=== PATIENT | female | born 1965 | race Caucasian/White ===

== ENCOUNTER 2025-01-17 11:40 | Emergency (ER) | payer OTHER ==
[2025-01-17] MEDS ORDERED: IPRATROPIUM BROM 0.5MG/2.5ML ONE (12:02)
[2025-01-17] MEDS ORDERED: METHYLPREDNISOLONE 125 MG INJ ONE (12:02)
[2025-01-17] MEDS ORDERED: FAMOTIDINE 20 MG/2 ML VIAL IV ONE (12:03)
[2025-01-17] MEDS ORDERED: NA CHLORIDE 0.9% 500 ML ONE (12:03)
[2025-01-17] MEDS ORDERED: NA CHLORIDE 0.9% 100 ML ONE (12:03)
[2025-01-17] MEDS ORDERED: LEVALBUTEROL 1.25 MG/3 ML NEB ONE (12:03)
[2025-01-17] MEDS ORDERED: Meropenem 1000 MG/VIAL IV ONE (12:03)
[2025-01-17 12:20] LABS: Absolute Basophils 0.1 K/uL (0-0.5); Absolute Eosinophils 0.2 K/uL (0-0.5); Absolute Lymphocytes (CBC) 2.5 K/uL (0.7-4.9); Absolute Monocytes 0.7 K/uL (0.1-1.3); Basophils % 0.9 % (0-1.3); Eosinophils % 1.9 % (0-4.4); Hematocrit 28.8 % (36.0-45.0); Hemoglobin 9.8 g/dL (12.0-15.0); MCV 96.9 fL (80-100); MPV 8.8 fL (7.6-11.3); Monocytes % 5.5 % (3.3-12.3); Neutrophils % 71.7 % (41.7-73.7); Nucleated Red Blood Cells % 0.2 % (0-0); Platelets 375 thou/uL (152-406); RBC Red Blood Cell Count 2.97 M/uL (3.86-4.86); Red Cell Distribution Width 13.9 % (12.1-15.2)
[2025-01-17 12:21] LABS: Influenza A Ag Negative; Influenza B Ag Negative; SARS-CoV-2 Antigen Rapid Res Negative (Negative)
[2025-01-17 12:26] LABS: PT Prothrombin Time 12.6 SECONDS (10-13.0); Protime INR 1.11
--- NOTE | 2025-01-17 12:30 | RAD REPORT ---
EXAMINATION: ONE VIEW CHEST XR CLINICAL INDICATION: Cough;COPD TECHNIQUE: Frontal chest projection is submitted. Examination is limited by patient positioning and t echnique. COMPARISON: No prior exam. FINDINGS: Moderate to severe bilateral opacities are present, greater on the right, likely representing pulmona ry edema or pneumonia. The heart is mildly enlarged in size. No displaced fractures identified. Postsurgical hardware is present cervical spine.
[2025-01-17 12:48] LABS: Albumin 2.6 g/dL (3.4-5.0); Albumin/Globulin Ratio 0.6 (1.1-1.8); Bilirubin Direct 0.3 mg/dL (0-0.2); Bilirubin Indirect, Calculated 0.3 mg/dL (0.2-0.8); Bilirubin Total 0.6 mg/dL (0.2-1.0); Globulin 4.7 g/dL (2.3-3.5); Protein, Total 7.3 g/dL (6.4-8.2); Troponin High Sensitivity 52.6 pg/mL (<58.9)
--- NOTE | 2025-01-17 12:52 | EDPHYS ---
Physician Documentation [facility] Name: Tracee Barney Age: 59 yrs Sex: Female : 1965 Arrival Date: 01/17/2025 Time: 11:40 Bed 5 Private MD: ED Physician Roberto Velázquez HPI: 01/17 12:39 This 59 yrs old Female presents to ER via Wheelchair with complaints of Low stacie Oxygen Levels, General Weakness, Chest Pain. 12:39 The patient or guardian reports chest pain that is located primarily in the substernal stacie area, anterior chest wall, bilaterally. Onset: 2 day(s) ago. The pain does not radiate. Associated signs and symptoms: Pertinent positives: shortness of breath. The chest pain is described as a heaviness. Duration: The patient or guardian reports multiple episodes, worse now. Modifying factors: The symptoms are alleviated by application of supplemental oxygen, remaining still, rest, the symptoms are aggravated by breathing, cough, deep breath, movement, walking. Severity of pain: At its worst the pain was mild in the emergency department the pain. The patient has experienced similar episodes in the past, multiple times. Historical: - Allergies: 11:56 Morphine; hb - PMHx: 11:56 Hypertensive disorder; Chronic obstructive lung disease; hb - PSHx: 11:56 SI joint; hb - Immunization history:: Adult Immunizations up to date. - Infectious Disease History:: Denies. - Social history:: Smoking status: Reported history of juuling and/or vaping. Patient/guardian denies using tobacco. ROS: 12:42 Constitutional: Negative for fever, chills, and weight loss, Eyes: Negative for injury, stacie pain, redness, and discharge, ENT: Negative for injury, pain, and discharge, Neck: Negative for injury, pain, and swelling, Abdomen/GI: Negative for abdominal pain, nausea, vomiting, diarrhea, and constipation, Back: Negative for injury and pain, : Negative for injury, bleeding, discharge, and swelling, MS/Extremity: Negative for injury and deformity, Skin: Negative for injury, rash, and discoloration, Neuro: Negative for headache, weakness, numbness, tingling, and seizure, Psych: Negative for depression, anxiety, suicide ideation, homicidal ideation, and hallucinations, Allergy/Immunology: Negative for hives, rash, and allergies, Endocrine: Negative for neck swelling, polydipsia, polyuria, polyphagia, and marked weight changes, Hematologic/Lymphatic: Negative for swollen nodes, abnormal bleeding, and unusual bruising, 12:42 Cardiovascular: Positive for chest pain, of the chest, 12:42 Respiratory: Positive for cough, shortness of breath, wheezing, expiratory, 12:42 Abdomen/GI: Negative for abdominal pain, 12:42 MS/extremity: Negative for acute changes, Exam: 12:44 Constitutional: This is a well developed, well nourished patient who is awake, alert, stacie and in no acute distress. Head/Face: Normocephalic, atraumatic. Eyes: Pupils equal round and reactive to light, extra-ocular motions intact. Lids and lashes normal. Conjunctiva and sclera are non-icteric and not injected. Cornea within normal limits. Periorbital areas with no swelling, redness, or edema. ENT: Nares patent. No nasal discharge, no septal abnormalities noted. Tympanic membranes are normal and external auditory canals are clear. Oropharynx with no redness, swelling, or masses, exudates, or evidence of obstruction, uvula midline. Mucous membranes moist. Neck: Trachea midline, no thyromegaly or masses palpated, and no cervical lymphadenopathy. Supple, full range of motion without nuchal rigidity, or vertebral point tenderness. No Meningismus. Chest/axilla: Normal chest wall appearance and motion. Nontender with no deformity. No lesions are appreciated. Abdomen/GI: Soft, non-tender, with normal bowel sounds. No distension or tympany. No guarding or rebound. No evidence of tenderness throughout. Back: No spinal tenderness. No costovertebral tenderness. Full range of motion. Female : Normal external genitalia. Skin: Warm, dry with normal turgor. Normal color with no rashes, no lesions, and no evidence of cellulitis. MS/ Extremity: Pulses equal, no cyanosis. Neurovascular intact. Full, normal range of motion., bilateral aka Neuro: Awake and alert, GCS 15, oriented to person, place, time, and situation. Cranial nerves II-XII grossly intact. Motor strength 5/5 in all extremities. Sensory grossly intact. Cerebellar exam normal. Normal gait. Psych: Awake, alert, with orientation to person, place and time. Behavior, mood, and affect are within normal limits. 12:44 Cardiovascular: Rate: normal, Rhythm: regular, Pulses: Pulses are 4+ in bilateral radial, brachial, femoral, popliteal, posterior tibial and and dorsalis pedis arteries.. Heart sounds: normal, JVD: is noted bilaterally, to the angle of the jaw, 12:44 ECG was reviewed by the Attending Physician. Vital Signs: 11:54 BP 110 / 76; Pulse 84; Resp 24; Temp 97.9(O); Pulse Ox 88% on R/A; Weight 52.16 kg; hb Height 5 ft. 3 in. ; Pain 8/10; 12:20 BP 96 / 65; Pulse 82; Resp 28; Pulse Ox 97% on Nebulizer Mask; ph 13:38 BP 108 / 73; Pulse 86; Resp 24; Pulse Ox 98% on BiPAP; ph 14:25 BP 112 / 91; Pulse 82; Resp 24; Pulse Ox 98% on BiPAP; FiO2 60 %; ph 15:00 BP 110 / 87; Pulse 86; Resp 24; Temp 97.5; Pulse Ox 99% on BiPAP; ph 11:54 Body Mass Index 20.37 (52.16 kg, 160.02 cm) hb 11:54 Pain Scale: Adult hb MDM: 11:48 Medical Screening Exam initiated stacie 12:47 Antibiotic administration: merrem. Differential diagnosis: Anemia Anxiety Reaction stacie asthma, Bronchitis CHF exacerbation, Chronic Obstructive Pulmonary Disease abnormal EKG, acute myocardial infarction, acute pericarditis, anxiety, chest wall pain, congestive heart failure costochondritis, myocarditis, pancreatitis, peptic ulcer disease, pericarditis, pleurisy, pneumonia, pneumothorax, pulmonary embolus, thoracic aortic disection, unstable angina, Myocardial Infarction pneumonia, Pneumothorax pulmonary edema, Pulmonary Embolism reactive airway disease, Sepsis Unstable Angina. HEART Score: History: Moderately Suspicious (1), ECG: Non specific repolarization disturbance / LBTB / PM (1), Age: > 45 and < 65 years (1), Risk Factors: > or = 3 Risk factors for atherosclerotic disease (2), [Hypercholesterolemia] [Hypertension] [Active Smoker] [+ Family HX] Troponin: < or = 1 x Normal Limit (0). The patient was not given aspirin in the Emergency Department. Patient reports taking aspirin within the past 24 hours. JOHNNY Risk Score: 1 - Three or more CAD risk factors, 1- Known CAD, 1 - ASA use in past 7 days, TOTAL SCORE = 3. Immunization status: Influenza vaccine: within last 5 years. Data reviewed: vital signs, nurses notes, lab test result(s), EKG, radiologic studies, plain films. Consideration of Admission/Observation Escalation of care including admission/observation considered. I considered the following discharge prescriptions or medication management in the emergency department Medications were administered in the Emergency Department. See MAR. Independent interpretation of the following test(s) in the Emergency Department EKG: See my EKG interpretation above. 14:31 Test considered but Not performed: Ultrasound no 2 d echo. Historians other than the [facility] Patient: Family Member: and daughter. Care significantly affected by the following chronic conditions: Congestive Heart Failure, Chronic Obstructive Pulmonary Disease. Counseling: I had a detailed discussion with the patient and/or guardian regarding the historical points, exam findings, and any diagnostic results supporting the discharge/admit diagnosis, lab results, radiology results, the need to transfer to another facility, for higher level of care, [facility] does not immediately have the required specialist. 14:33 Post IV fluid administration reassessment for Sepsis: Client not prescribed the 30 stacie mL/kg IVF due to: Lungs: Other: chf. 01/17 11:50 Order name: Basic Metabolic Panel; Complete Time: 13: [facility] 01/17 11:50 Order name: CBC with Diff; Complete Time: 13:26 [facility] 01/17 11:50 Order name: LFT's; Complete Time: 13:26 [facility] 01/17 11:50 Order name: Magnesium; Complete Time: 13:26 [facility] 01/17 11:50 Order name: NT PRO-BNP; Complete Time: 13:26 [facility] 01/17 11:50 Order name: PT-INR; Complete Time: 12:38 [facility] 01/17 11:50 Order name: Troponin HS; Complete Time: 13:26 [facility] 01/17 11:50 Order name: Blood Culture Adult (2) [facility] 01/17 11:50 Order name: Lactate w/ 2H reflex if indic.; Complete Time: 13:26 [facility] 01/17 11:50 Order name: Lipase; Complete Time: 13:26 [facility] 01/17 11:50 Order name: COVID-19 Ag + Flu A+B Ag; Complete Time: 12:38 [facility] 01/17 11:50 Order name: UA Rfx Puma Cult if indicated; Complete Time: 14:30 [facility] 01/17 12:20 Order name: ABG; Complete Time: 13:26 [facility] 01/17 12:45 Order name: Ghost Lactate-NO COLLECT Timer EDMS 01/17 11:50 Order name: XRAY Chest (1 view); Complete Time: 12:38 [facility] 01/17 11:50 Order name: EKG; Complete Time: 11:50 [facility] 01/17 11:50 Order name: Cardiac monitoring; Complete Time: 12:18 [facility] 01/17 11:50 Order name: EKG - Nurse/Tech; Complete Time: 12:18 [facility] 01/17 11:50 Order name: IV Saline Lock; Complete Time: 12:13 [facility] 01/17 11:50 Order name: Labs collected and sent; Complete Time: 12:13 [facility] 01/17 11:50 Order name: O2 Per Protocol; Complete Time: 11:56 [facility] 01/17 11:50 Order name: O2 Sat Monitoring; Complete Time: 11:56 [facility] 01/17 12:19 Order name: Villarreal; Complete Time: 13:38 [facility] 01/17 14:35 Order name: IV Saline Lock - Large Bore; Complete Time: 14:36 [facility] EC:44 Rate is 80 beats/min. Rhythm is regular. QRS Gaines is Normal. MT interval is normal. QRS stacie interval is normal. QT interval is normal. No Q waves. T waves are Normal. ST Segment is depressed in leads II, III, aVF, V5, V6. Clinical impression: NSR w/ Non-specific ST/T Changes and No evidence of ischemia. Interpreted by me. Reviewed by me. Administered Medications: 12:19 Discontinued: ns 0.9% 500 ml IV at bolus once; to be given as a bolus over 30 minutes stacie 12:17 Drug: MethylPrednisoLONE IVP 125 mg IVP once Route: IVP; Site: right antecubital; ph 14:26 Follow up: Response: No adverse reaction ph 12:18 Drug: Levalbuterol Inhalation 3.75 mg Inhalation once Route: Inhalation; ph 14:26 Follow up: Response: No adverse reaction ph 12:18 Drug: Ipratropium Inhalation Aerosol 0.5 mg Inhalation once Route: Inhalation; ph 14:26 Follow up: Response: No adverse reaction ph 12:18 Drug: Famotidine IVP 20 mg IVP once; dilute with 10 mL 0.9% NaCl; give over 2 minutes ph Route: IVP; Site: right antecubital; 14:26 Follow up: Response: No adverse reaction ph 12:18 Drug: NS 0.9% IV 500 ml IV at bolus once; to be given as a bolus over 30 minutes Route: ph IV; Rate: bolus; Site: right antecubital; 12:28 Follow up: Response: No adverse reaction; IV Status: Order to discontinue infusion ph 12:19 Not Given (Duplicate Order): ns 0.9% 1000 ml IV at 100 ml/hr once; to be given as a stacie bolus over 60 minutes 12:28 Drug: Meropenem IV 1 grams IV at per protocol once; (mix in NS 100 mL) Route: IV; Rate: ph per protocol; Site: right antecubital; 13:00 Follow up: Response: No adverse reaction; IV Status: Completed infusion ph 13:38 Drug: Furosemide IVP 40 mg IVP once; give over 2 minutes Route: IVP; Site: right ph antecubital; 14:27 Follow up: Response: No adverse reaction ph 15:12 Drug: Ativan IVP 0.5 mg IVP once Route: IVP; Site: right antecubital; ph 15:19 Follow up: Response: No adverse reaction ph Disposition: 14:31 Critical Care:. stacie Disposition Summary: 01/17/25 12:51 Transfer Ordered Notes: Transfer Location: [facility] stacie Reason: Higher level of care stacie Condition: Serious stacie Problem: an ongoing problem stacie Symptoms: have worsened stacie Accepting Physician: to icu/ccu(01/17/25 15:18) hb Diagnosis - Nonrheumatic mitral valve disorder, unspecified - insufficency stacie - Chronic combined systolic (congestive) and diastolic (congestive) heart failure stacie - COPD/ Chronic obstructive pulmonary disease with (acute) exacerbation stacie - Hypoxemia stacie - Hypotension, unspecified stacie - Elevated white blood cell count stacie - Chronic kidney disease, unspecified stacie - Severe sepsis without septic shock stacie Forms: - Medication Reconciliation Form stacie - SBAR form stacie Critical care time excluding procedures: 14:31 Critical care time: Bedside Care: 30 minutes, Consultation: 20 minutes, Family stacie Intervention: 15 minutes. Total time: 65 minutes Signatures: Dispatcher [employer] EDMS Roberto Velázquez MD MD cha Hall, Patricia, RN RN ph Carmen Rhoades, DIANA RN hb Corrections: (The following items were deleted from the chart) 11:50 11:50 BASIC METABOLIC PANEL+C.LAB.BRZ ordered. EDMS EDMS 11:50 11:50 CBC+H.LAB.BRZ ordered. EDMS EDMS 11:50 11:50 HEPATIC FUNCTION+C.LAB.BRZ ordered. EDMS EDMS 11:50 11:50 MAGNESIUM+C.LAB.BRZ ordered. EDMS EDMS 11:50 11:50 PROBNP+C.LAB.BRZ ordered. EDMS EDMS 11:50 11:50 PROTIME (+INR)+COAG.LAB.BRZ ordered. EDMS EDMS 11:50 11:50 Troponin High Sensitivity+C.LAB.BRZ ordered. EDMS EDMS 11:50 11:50 BLOOD CULTURE*+BA.LAB.BRZ ordered. EDMS EDMS 11:50 11:50 LACTATE+C.LAB.BRZ ordered. EDMS EDMS 11:50 11:50 LIPASE+C.LAB.BRZ ordered. EDMS EDMS 11:50 11:50 COVID-19 Ag + Flu A+B Ag+I.LAB.BRZ ordered. EDMS EDMS 12:20 12:20 BiPap ([employer] Only)+RC.RAD.BRZ ordered. EDMS EDMS 13:30 12:51 to icu/ccu stacie stacie 14:31 13:30 to icu/ccu stacie stacie 15:18 14:31 to icu/ccu stacie hb
--- NOTE | 2025-01-17 12:52 | ER ---
Nurse's Notes [facility] Name: Tracee Barney Age: 59 yrs Sex: Female : 1965 Arrival Date: 01/17/2025 Time: 11:40 Bed 5 Private MD: Diagnosis: Nonrheumatic mitral valve disorder, unspecified-insufficency;Chronic combined systolic (congestive) and diastolic (congestive) heart failure;COPD/ Chronic obstructive pulmonary disease with (acute) exacerbation;Hypoxemia;Hypotension, unspecified;Elevated white blood cell count;Chronic kidney disease, unspecified;Severe sepsis without septic shock Presentation: 01/17 11:54 Chief complaint: Patient states: Low O2, weak, CP, low BP since last night. Coronavirus hb screen: Client denies travel out of the [place] in the last 14 days. difficulty breathing, shortness of breath, Client presents with at least one sign or symptom that may indicate coronavirus-19. Standard/surgical mask placed on the client. Ebola Screen: Patient denies travel to an Ebola-affected area in the 21 days before illness onset. Initial Sepsis Screen: Does the patient meet any 2 criteria? No. Patient's initial sepsis screen is negative. Does the patient have a suspected source of infection? No. Patient's initial sepsis screen is negative. Risk Assessment: Do you want to hurt yourself or someone else? Patient reports no desire to harm self or others. Onset of symptoms was January 16, 2025. 11:54 Method Of Arrival: Wheelchair hb 11:54 Acuity: MICHEAL 2 hb Triage Assessment: 11:56 General: Appears uncomfortable, ill, Behavior is calm, cooperative, appropriate for hb age. Pain: Complains of pain in chest Quality of pain is described as aching. Cardiovascular: Reports chest pain, shortness of breath. Historical: - Allergies: 11:56 Morphine; hb - PMHx: 11:56 Hypertensive disorder; Chronic obstructive lung disease; hb - PSHx: 11:56 SI joint; hb - Immunization history:: Adult Immunizations up to date. - Infectious Disease History:: Denies. - Social history:: Smoking status: Reported history of juuling and/or vaping. Patient/guardian denies using tobacco. Screenin:55 Abuse screen: Denies threats or abuse. Has been threatened or abused. Nutritional ph screening: No deficits noted. Tuberculosis screening: No symptoms or risk factors identified. 12:20 [facility] ED Fall Risk Assessment (Adult) History of falling in the last 3 months, ph including since admission No falls in past 3 months (0 pts) Confusion or Disorientation Yes (5 pts) Intoxicated or Sedated No (0 pts) Impaired Gait No (0 pts) Mobility Assist Device Used No (0 pt) Altered Elimination No (0 pt) Score/Fall Risk Level 3 or more points = High Risk Oriented to surroundings, Maintained a safe environment, Hourly rounding (assess needs \T\ fall precautionary measures) done, Used ambulatory aids as needed (educated on \T\ assisted with). Assessment: 12:18 General: Appears in no apparent distress. uncomfortable, well groomed, Behavior is ph calm, cooperative. Pain: Complains of pain in chest Pain does not radiate. Neuro: Level of Consciousness is awake, obeys commands, confused, lethargic, Oriented to person, place. Cardiovascular: Capillary refill < 3 seconds in bilateral fingers Patient's skin is warm and dry. Respiratory: Airway is patent Respiratory effort is labored, Respiratory pattern is tachypnea. Respiratory: Reports shortness of breath at rest. GI: Abdomen is round. Derm: Skin is dusky. Musculoskeletal: Circulation, motion, and sensation intact. Range of motion: intact in all extremities. 14:20 Reassessment: Report called to DIANA Coughlin at [facility]. ph 15:18 Reassessment: Patient appears in no apparent distress at this time. Patient and/or ph family updated on plan of care and expected duration. Pain level reassessed. Pt transferred to [facility]. Vital Signs: 11:54 BP 110 / 76; Pulse 84; Resp 24; Temp 97.9(O); Pulse Ox 88% on R/A; Weight 52.16 kg; hb Height 5 ft. 3 in. ; Pain 8/10; 12:20 BP 96 / 65; Pulse 82; Resp 28; Pulse Ox 97% on Nebulizer Mask; ph 13:38 BP 108 / 73; Pulse 86; Resp 24; Pulse Ox 98% on BiPAP; ph 14:25 BP 112 / 91; Pulse 82; Resp 24; Pulse Ox 98% on BiPAP; FiO2 60 %; ph 15:00 BP 110 / 87; Pulse 86; Resp 24; Temp 97.5; Pulse Ox 99% on BiPAP; ph 11:54 Body Mass Index 20.37 (52.16 kg, 160.02 cm) hb 11:54 Pain Scale: Adult hb Vitals: 12:20 Cardiac Rhythm Assessment Sinus rhythm. ph ED Course: 11:46 Patient arrived in ED. [email or web address] 11:48 Roberto Velázquez MD is Attending Physician. stacie 11:55 Belen Romano, RN is Primary Nurse. ph 11:56 Triage completed. hb 11:56 Arm band placed on Patient placed in an exam room, on a stretcher, on vice president mission integration, ph on pulse oximetry. 12:06 XRAY Chest (1 view) In Process Unspecified. EDMS 12:08 Initial lab(s) drawn, by me, sent to lab. First set of blood cultures drawn by me. me1 12:12 Inserted saline lock: 20 gauge in right antecubital area, using aseptic technique. me1 12:13 COVID swab sent to lab. me1 12:13 COVID-19 Ag + Flu A+B Ag Sent. me1 12:13 Lipase Sent. me1 12:13 Lactate w/ 2H reflex if indic. Sent. me1 12:13 Blood Culture Adult (2) Sent. me1 12:13 Basic Metabolic Panel Sent. me1 12:13 CBC with Diff Sent. me1 12:13 LFT's Sent. me1 12:13 Magnesium Sent. me1 12:13 NT PRO-BNP Sent. me1 12:13 PT-INR Sent. me1 12:13 Troponin HS Sent. me1 12:20 Patient has correct armband on for positive identification. Bed in low position. Call light in reach. Side rails up X2. Client placed on continuous cardiac and pulse oximetry monitoring. NIBP monitoring applied. medical assisting instructor on. Door closed. Noise minimized. Warm blanket given. Pillow given. 12:20 EKG done, by ED staff, reviewed by Roberto Velázquez MD. nh2 12:35 initiated transfer to [facility] for continuity of care as requested by patient. bd 12:40 pt denied at [facility] due to no ICU beds at this time. bd 12:43 transfer to [facility] initiated by Dr Velázquez. bd 12:50 initiated transfer to [facility], pt denied due to no ccu or icu beds at this time bd per Abigail. 13:41 No provider procedures requiring assistance completed. Patient transferred, IV remains ph in place. O2 via PT CURRENTLY ON BI-PAP. Administered Medications: 12:19 Discontinued: ns 0.9% 500 ml IV at bolus once; to be given as a bolus over 30 minutes staice 12:17 Drug: MethylPrednisoLONE IVP 125 mg IVP once Route: IVP; Site: right antecubital; ph 14:26 Follow up: Response: No adverse reaction ph 12:18 Drug: Levalbuterol Inhalation 3.75 mg Inhalation once Route: Inhalation; ph 14:26 Follow up: Response: No adverse reaction ph 12:18 Drug: Ipratropium Inhalation Aerosol 0.5 mg Inhalation once Route: Inhalation; ph 14:26 Follow up: Response: No adverse reaction ph 12:18 Drug: Famotidine IVP 20 mg IVP once; dilute with 10 mL 0.9% NaCl; give over 2 minutes ph Route: IVP; Site: right antecubital; 14:26 Follow up: Response: No adverse reaction ph 12:18 Drug: NS 0.9% IV 500 ml IV at bolus once; to be given as a bolus over 30 minutes Route: ph IV; Rate: bolus; Site: right antecubital; 12:28 Follow up: Response: No adverse reaction; IV Status: Order to discontinue infusion ph 12:19 Not Given (Duplicate Order): ns 0.9% 1000 ml IV at 100 ml/hr once; to be given as a stacie bolus over 60 minutes 12:28 Drug: Meropenem IV 1 grams IV at per protocol once; (mix in NS 100 mL) Route: IV; Rate: ph per protocol; Site: right antecubital; 13:00 Follow up: Response: No adverse reaction; IV Status: Completed infusion ph 13:38 Drug: Furosemide IVP 40 mg IVP once; give over 2 minutes Route: IVP; Site: right ph antecubital; 14:27 Follow up: Response: No adverse reaction ph 15:12 Drug: Ativan IVP 0.5 mg IVP once Route: IVP; Site: right antecubital; ph 15:19 Follow up: Response: No adverse reaction ph Medication: 12:21 VIS not applicable for this client. ph Outcome: 12:51 ER care complete, transfer ordered by MD. quinones 14:01 Condition: stable ph 14:27 Transferred by ground EMS [place]. to [facility], Transfer form completed. ph X-rays sent w/ patient. 14:27 Instructed on the need for transfer, 15:18 Patient left the ED. jose manuel Signatures: Dispatcher [employer] EDMS Ingrid Tobar Corey, MD MD cha Hall, Patricia, RN RN Carmen Rhoades RN RN Maribell Puentes RN RN [facility] [place] , Tori Samaniego 3
[2025-01-17 12:58] LABS: Arterial Blood Carboxyhemoglob 1.4 % (0-1.5); Blood Gas Oxyhemoglobin 93.7 % (94-97); Blood Gas THB 9.1 g/dl (12-18); Blood O2 Saturation 96.7 % (92-98.5)
[2025-01-17] MEDS ORDERED: FUROSEMIDE 40 MG/4 ML VIAL ONE (13:07)
[2025-01-17 13:43] LABS: Specific Gravity 1.026 (1.005-1.030); Sqamous Epithelial <5 /HPF (None Seen); Transitional Epithelial <5 /HPF (None Seen); Urine Bacteria <20 /HPF (<20); Urine Bilirubin NEGATIVE (Negative); Urine Blood Negative (Negative); Urine Clarity Clear (Clear); Urine Color Yellow (Yellow); Urine Culture Reflex Order NOT NEEDED; Urine Glucose TRACE (Negative); Urine Ketones NEGATIVE (Negative); Urine Microscopic Reflex YN ORDER UMIC; Urine Mucus Slight /HPF (None Seen); Urine Nitrite NEGATIVE (Negative); Urine Protein 1+ (Negative); Urine RBC <5 /HPF (None Seen); Urine Urobilinogen 1+ (Normal); Urine WBC <5 /HPF (<5); Urine pH 5.5 (5.0-7.0)
[2025-01-17] MEDS ORDERED: LORazepam 2 MG/ML VIAL ONE (15:08)
[2025-01-17 19:19] VITALS: TEMP 97.9
[2025-01-17 19:20] VITALS: O2SAT 98
[2025-01-17 19:22] VITALS: BP 112/91
--- NOTE | 2025-01-19 11:49 | EKG ---
Test Date: 2025-01-17 Test Time: 12:17:47 Dye Feeder: FRANCESCO MEASUREMENT RESULTS: Intervals: Rate: 80 PA: 150 QRSD: 104 QT: 388 QTc: 447 [place]: P: 78 PA: 150 QRS: 70 T: 56 INTERPRETIVE STATEMENTS: Normal sinus rhythm T wave abnormality, consider lateral ischemia Abnormal ECG Compared to ECG 08/27/2012 10:42:28 T-wave abnormality now present Possible ischemia now present Electronically Signed On 01-19-25 11:43:46 CDT by René Tom
== END 2025-01-17 15:18 | disposition short-term general hospital (02) ==
LOC: ER 11:40
DX: J44.1 Chronic obstructive pulmonary disease with (acute) exacerbation (principal); R65.20 Severe sepsis without septic shock; I34.0 Nonrheumatic mitral (valve) insufficiency; I50.42 Chronic combined systolic (congestive) and diastolic (congestive) heart failure; I95.9 Hypotension, unspecified; I12.9 Hypertensive chronic kidney disease with stage 1 through stage 4 chronic kidney disease, or unspecified chronic kidney disease; N18.9 Chronic kidney disease, unspecified; D72.829 Elevated white blood cell count, unspecified; Z11.52 Encounter for screening for COVID-19
CPT/HCPCS: 96365; 93005; 87040 ×2; 85025; 81001; 80048; 36415; 83735; 85610; 80076; 83605; 84484; 83690; 83880; 71045; 82805; 96375; 99285; 87428; 36600; 94660; J7614; J1938; J7644; J2185; J2919; J7040